=== PATIENT | male | born 1955 | race Two or more races ===

== ENCOUNTER 2017-07-15 09:56 | Observation (INO) | payer BC, OTHER ==
[2017-07-15] MEDS ORDERED: ACETAMINOPHEN 1000 MG/100 ML VIAL (NON FORMULARY) IVPB ONE (10:20)
[2017-07-15] MEDS ORDERED: ACETAMINOPHEN INJECTION 100 ML IVPB ONE (10:36)
[2017-07-15 10:47] LABS: BASO % 0.8 % (0-2.0); EOS % 3.5 % (0-4.5); HEMATOCRIT 42.3 % (35.4-49); HEMOGLOBIN 13.9 GM/dL (11.7-16.9); LYMPH % 31.4 % (8-40); MCH 27.2 pg (25.7-33.7); MCHC 32.8 g/dl (32.0-35.9); MEAN PLT VOLUME 7.4 fl (7.5-11.1); MONO % 11.4 % (3.8-10.2); NEUT % 52.9 % (42.8-82.8); PLATELET COUNT 238 K/MM3 (134-434); RDW 12.8 % (11.9-15.9); WHITE BLOOD COUNT 7.2 K/mm3 (4.0-10.0)
--- NOTE | 2017-07-15 10:58 | PDOC ---
History of Present Illness - General Chief Complaint: Syncope/Near Syncope Stated Complaint: INJURY Time Seen by Provider: 07/15/17 10:08 History Source: Patient Exam Limitations: No Limitations - History of Present Illness Initial Comments: 07/15/17 11:00 62-year-old male presents to the ED status post syncopal episode. Patient states was at work when she started his stay uneventfully when he was to get couple coffee and started to choke on the fluids. Patient states was unable to catch his breath and started feel dizzy. 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 As per the supervising he did not witness the fall but did find patient on the floor without tremors, skin discoloration, eye rolling, or confusion. Patient states has had this episode happened to him before secondary to coughing episode causing him to faint. Patient states is followed by Dr. 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 Patient has no complaints except for a bump to the back of his head and throbbing sensation surrounding the bump. Patient also mentions upper neck pain which she describes an aching stiff sensation. Patient denies chest pain, shortness of breath, visual changes, nausea, abdominal pain or weakness. Patient currently on no anticoagulation therapy except for baby aspirin daily. Presenting Symptoms: Syncope Timing/Duration: reports: resolved prior to arrival Associated Symptoms: Yes: Syncope Past History - Travel Traveled outside of the country in the last 30 days: No - Past Medical History Allergies/Adverse Reactions: Allergies Allergy/AdvReac Type Severity Reaction Status Date / Time No Known Allergies Allergy Verified 07/15/17 10:00 Home Medications: Ambulatory Orders Amlodipine Besylate [Norvasc -] 10 mg PO DAILY 05/08/13 Losartan Potassium 25 mg PO DAILY 07/15/17 Omeprazole/Sodium Bicarbonate [Omeppi 40 mg-1,100 mg Capsule] 1 each PO DAILY Anemia: No Asthma: No Cancer: No Cardiac Disorders: No CVA: No COPD: No CHF: No Dementia: No Diabetes: No GI Disorders: No Disorders: No HTN: Yes Hypercholesterolemia: Yes Liver Disease: No Seizures: No Thyroid Disease: No - Surgical History Abdominal Surgery: Yes (HERNIA REPAIR) - Suicide/Smoking/Psychosocial Hx Smoking Status: No Smoking History: Never smoked Number of Cigarettes Smoked Daily: 0 Patient Lives Alone: No Lives with/in: spouse/SO Cardiac Specific PMH - Complaint Specific PMHX Pacemaker: No Review of Systems - Review of Systems Able to Perform ROS?: Yes Constitutional: No: Symptoms Reported HEENTM: No: Symptoms Reported Respiratory: No: Symptoms reported Cardiac (ROS): Yes: Syncope Musculoskeletal: Yes: Neck Pain (upper neck) Integumentary: Yes: Lumps Neurological: Yes: Headache Hematologic/Lymphatic: No: Symptoms Reported *Physical Exam - Vital Signs Last Vital Signs Temp Pulse Resp BP Pulse Ox 97.9 F 81 16 128/77 97 07/15/17 10:00 07/15/17 16:00 07/15/17 16:00 07/15/17 16:00 07/15/17 16:00 - Physical Exam General Appearance: Yes: Nourished, Appropriately Dressed. No: Apparent Distress HEENT: positive: EOMI, ALBERTINA, TMs Normal, Pharynx Normal. negative: Pale Conjunctivae Neck: positive: Supple, Tender lateral (t C1 level bi), Tender midline (c1) Respiratory/Chest: positive: Lungs Clear, Normal Breath Sounds. negative: Respiratory Distress, Accessory Muscle Use Cardiovascular: positive: Regular Rhythm, Regular Rate. negative: Murmur Gastrointestinal/Abdominal: positive: Soft. negative: Tenderness Integumentary: positive: Normal Color, Warm, Moist, Swelling (noted 4 cm circular tender hematoma over left occipital region. Surrounding skin intact) Heart Score/ECG Review - History History: Slightly suspicious - Electrocardiogram EKG: Normal - Age Age: 45-65 - Risk Factors Risk Factors Heart Score: Yes Hx Hypercholesterolemia, Yes Hx Hypertension Based on the list above the patient has:: 1-2 risk factors - Troponin Troponin: </= normal limit - Score Heart Score - Total: 2 - ECG Intrepretation Rhythm: Regular Rhythm (Regular rate at 66. Intervals are regular. No ST elevation or depression.) ED Treatment Course - LABORATORY CBC & Chemistry Diagram: 07/15/17 10:30 07/15/17 10:30 - ADDITIONAL ORDERS Additional order review: Laboratory Results 07/15/17 07/15/17 10:30 10:30 PT with INR 11.70 INR 1.04 Sodium 138 Potassium 4.0 Chloride 102 Carbon Dioxide 25 Anion Gap 11 BUN 12 D Creatinine 1.0 Creat Clearance w eGFR > 60 Random Glucose 138 H D Calcium 8.6 Magnesium 2.4 Total Bilirubin 0.4 AST 27 D ALT 44 D Alkaline Phosphatase 82 Creatine Kinase 105 Troponin I < 0.02 Total Protein 7.4 Albumin 4.0 07/15/17 10:30 RBC 5.10 MCV 83.0 MCHC 32.8 RDW 12.8 MPV 7.4 L D Neutrophils % 52.9 D Lymphocytes % 31.4 D Monocytes % 11.4 H Eosinophils % 3.5 Basophils % 0.8 - RADIOLOGY Radiology Studies Ordered: Category Date Time Status CERVICAL SPINE CT W/O CONTR [CT] Stat CT Scan 07/15/17 10:[address] WITHOUT CONTRAST [CT] Stat CT Scan 07/15/17 10:19 Completed CHEST X-RAY PORTABLE* [RAD] Stat Radiology 07/15/17 10:19 Completed CAROTID COLOR FLOW DOPP US [US] Stat Ultrasound 07/15/17 13:14 Completed - Medications Given in the ED: ED Medications Discontinued Medications Generic Name Dose Route Start Last Admin Trade Name Freq PRN Reason Stop Dose Admin Acetaminophen 1,000 mg 07/15/17 10:20 07/15/17 10:44 Ofirmev Injection - IVPB 07/15/17 10:21 1,000 mg ONCE ONE Administration Medical Decision Making - Medical Decision Making 07/15/17 11:01 Patient status post syncopal episode during a choking episode at work. Patient had an unwitnessed syncopal episode and was found by his masonry supervisor alert oriented and with no complaints of nausea or visual changes. Patient arrives with 4 cm hematoma to the left occipital along with C1 tenderness. Otherwise patient had no neural focal deficits. Differential diagnosis includes ACS, intracranial bleed, vasovagal episode, electrolyte imbalance, Cardiac workup, IV Tylenol along with CT of the head and neck were ordered 07/15/17 11:37 Laboratory Tests 07/15/17 07/15/17 10:30 10:30 WBC 7.2 Hgb 13.9 Hct 42.3 Plt Count 238 D Neutrophils % 52.9 D Random Glucose 138 H D Calcium 8.6 Magnesium 2.4 Total Bilirubin 0.4 AST 27 D ALT 44 D Creatine Kinase 105 Troponin I < 0.02 Chest x-ray shows unchanged right Granuloma 07/15/17 12:59 CT of the head and neck show no acute findings patient states feeling better after receiving IV Tylenol. Call placed to Dr. Umm Remy patient's primary care physician to update him on patient's ER visit and disposition 07/15/17 13:[address] Torres and agrees patient should be admitted to telemetry observation. Patient ordered for a carotid duplex along with an echo since his last echocardiogram was approximate 4 years ago. Patient be admitted to telemetry obs. Patient remains on ekg monitor *DC/Admit/Observation/Transfer Diagnosis at time of Disposition: Syncope - Discharge Dispostion Disposition: HOME Admit: Yes - Referrals - Patient Instructions - Post Discharge Activity
[2017-07-15 11:30] LABS: ANION GAP 11 (8-16); BILIRUBIN,TOTAL 0.4 mg/dL (0.2-1.0); BLOOD UREA NITROGEN 12 mg/dL (7-18); CALCIUM 8.6 mg/dL (8.5-10.1); CHLORIDE 102 mmol/L (98-107); CO2 25 mmol/L (21-32); GLUCOSE,RANDOM 138 mg/dL (74-106); SGPT/ALT 44 U/L (12-78); SODIUM 138 mmol/L (136-145); TOT PROT 7.4 g/dl (6.4-8.2)
[2017-07-15 11:35] LABS: ALK PHOS 82 U/L (45-117); MAGNESIUM 2.4 mg/dL (1.8-2.4); SGOT/AST 27 U/L (15-37)
[2017-07-15 11:44] LABS: INR 1.04 (0.82-1.09); PROTHROMBIN TIME (PATIENT) 11.7 SEC (9.98-11.88)
--- NOTE | 2017-07-15 16:05 | EKG ---
Test Reason : Blood Pressure : / mmHG Vent. Rate : 066 BPM Atrial Rate : 066 BPM P-R Int : 182 ms QRS Dur : 104 ms QT Int : 392 ms P-R-T Axes : 047 034 009 degrees QTc Int : 410 ms NORMAL SINUS RHYTHM NORMAL ECG WHEN COMPARED WITH ECG OF 28-APR-2013 16:47, NO SIGNIFICANT CHANGE WAS FOUND Confirmed by MASTER SANABRIA MD ([id number]) on 07/15/2017 4:05:09 PM Referred By: Confirmed By:MASTER SANABRIA MD
[2017-07-15] MEDS ORDERED: ACETAMINOPHEN 325 MG TABLET (FP) PO PRN (17:40)
--- NOTE | 2017-07-15 17:43 | HP ---
Admitting History and Physical - Primary Care Physician PCP: Audie Remy - Admission Chief Complaint: syncopal episode History of Present Illness: 62-year-old male presents to the ED status post syncopal episode. Patient states was at work when she started his stay uneventfully when he was to get couple coffee and started to choke on the fluids. Patient states was unable to catch his breath and started feel dizzy. 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 As per the supervising he did not witness the fall but did find patient on the floor without tremors, skin discoloration, eye rolling, or confusion. Patient states has had this episode happened to him before secondary to coughing episode causing him to faint. Patient states is followed by Dr. 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 Patient has no complaints except for a bump to the back of his head and throbbing sensation surrounding the bump. Patient also mentions upper neck pain which she describes an aching stiff sensation. Patient denies chest pain, shortness of breath, visual changes, nausea, abdominal pain or weakness. Patient currently on no anticoagulation therapy except for baby aspirin daily. pt seen by me in er chart reviewed discussed with pt/ er physician/ pts daughter pt feels better midl heache ct head - noted ekg - ok will keep overnight in tele for observation, History Source: Patient, Family Member Limitations to Obtaining History: No Limitations - Past Medical History Cardiovascular: Yes: HTN, Hyperlipdemia - Smoking History Smoking history: Never smoked Aproximately how many cigarettes per day: 0 - Alcohol/Substance Use History of Substance Use: reports: None - Social History Usual Living Arrangement: Yes: With Spouse History of Recent Travel: No Home Medications - Allergies Allergies/Adverse Reactions: Allergies Allergy/AdvReac Type Severity Reaction Status Date / Time No Known Allergies Allergy Verified 07/15/17 10:00 - Home Medications Home Medications: Ambulatory Orders Amlodipine Besylate [Norvasc -] 10 mg PO DAILY 05/08/13 Omeprazole/Sodium Bicarbonate [Omeppi 40 mg-1,100 mg Capsule] 1 each PO DAILY Acetaminophen [Tylenol .Regular Strength -] 650 mg PO Q4H PRN tablet 07/16/17 Atorvastatin Ca [Lipitor] 10 mg PO HS #30 tablet 07/16/17 Losartan Potassium [Cozaar -] 25 mg PO DAILY tablet 07/16/17 Review of Systems Unable to obtain ROS, reason: see [facility] Physical Examination Vital Signs: Vital Signs Temperature 97.9 F 07/15/17 10:00 Pulse Rate 81 07/15/17 16:00 Respiratory Rate 16 07/15/17 16:00 Blood Pressure 128/77 07/15/17 16:00 O2 Sat by Pulse Oximetry (%) 97 07/15/17 16:00 Constitutional: Yes: No Distress, Calm Eyes: Yes: Conjunctiva Clear, PERRL HENT: Yes: WNL Neck: Yes: WNL, Supple Cardiovascular: Yes: Regular Rate and Rhythm Respiratory: Yes: CTA Bilaterally Gastrointestinal: Yes: Normal Bowel Sounds, Soft Edema: No Neurological: Yes: WNL, Alert, Cran Nerves II-XII Intact Psychiatric: Yes: Alert Labs: CBC, BMP 07/15/17 10:30 07/15/17 10:30 Imaging - Results Chest X-ray: Report Reviewed X-ray: Report Reviewed Cat Scan: Report Reviewed EKG: Report Reviewed Problem List - Problems (1) Syncope Code(s): R55 - SYNCOPE AND COLLAPSE (2) Hypertension Code(s): I10 - ESSENTIAL (PRIMARY) HYPERTENSION Assessment/Plan Monitor on tele cardiology eval. fall precautions check echo/ lipid / tsh / hba1c repeat ct head in am will follow Discussed with pt/ daughter
[2017-07-16 02:03] VITALS: BMI 28.6
[2017-07-16 07:23] LABS: ALBUMIN 3.8 g/dl (3.4-5.0); ANION GAP 6 (8-16); BLOOD UREA NITROGEN 14 mg/dL (7-18); CALCIUM 8.2 mg/dL (8.5-10.1); CHLORIDE 106 mmol/L (98-107); CO2 28 mmol/L (21-32); GLUCOSE,RANDOM 92 mg/dL (74-106); SODIUM 140 mmol/L (136-145)
[2017-07-16 07:33] LABS: ALK PHOS 79 U/L (45-117); BILIRUBIN,TOTAL 0.6 mg/dL (0.2-1.0); CREATININE 1.1 mg/dL (0.7-1.3); SGOT/AST 16 U/L (15-37); SGPT/ALT 36 U/L (12-78)
[2017-07-16 08:10] LABS: BASO % 0.6 % (0-2.0); EOS % 2.4 % (0-4.5); HEMATOCRIT 43.6 % (35.4-49); HEMOGLOBIN 14.2 GM/dL (11.7-16.9); LYMPH % 36.8 % (8-40); MCH 26.8 pg (25.7-33.7); MCHC 32.6 g/dl (32.0-35.9); MEAN CELL VOLUME 82.2 fl (80-96); MEAN PLT VOLUME 7.9 fl (7.5-11.1); MONO % 13.7 % (3.8-10.2); NEUT % 46.5 % (42.8-82.8); PLATELET COUNT 244 K/MM3 (134-434); RBC 5.31 M/mm3 (4.00-5.60); RDW 12.2 % (11.9-15.9); WHITE BLOOD COUNT 7.1 K/mm3 (4.0-10.0)
[2017-07-16] MEDS ORDERED: OMEPRAZOLE PO SCH (10:00)
[2017-07-16] MEDS ORDERED: [UNRECOGNIZED DRUG - OTHER] PO SCH (10:00)
[2017-07-16] MEDS ORDERED: LOSARTAN POTASSIUM 25 MG TABLET PO SCH (10:00)
[2017-07-16] MEDS ORDERED: amLODIPine BESYLATE 10 MG TABLET (FP) PO SCH (10:00)
[2017-07-16] MEDS ORDERED: SODIUM BICARBONATE PO SCH (10:00)
--- NOTE | 2017-07-16 11:06 | CON.CARD ---
Consult Consult Specialty:: Cardiology - History of Present Illness Chief Complaint: Transient loss of consciousness after choking on a piece of bread. History of Present Illness: 62 year old [place] gentleman was eating a dry piece of bread and was walking suddenly he started to choke. Had difficulty in breathing and became lightheaded and then suddenly vomited and lost consciousness, hitting his head on the ground. Patient has no recollection of falling to the ground but feels that he woke up within a few seconds. Was complaining of pain over occipital area of the skull accompanied by swelling and painful fullness involving both ears. There is no history of loss of sphincter control or tongue biting. No witnessed seizures were reported. Paramedics were called and was transported to the hospital. Known case of Hypertension, Hypercholesterolemia and gastroesophageal reflux disease. No history of chest pain or discomfort, no history of dyspnea either at rest or at exertion, no PND or orthopnea. No history of palpitations. Denies having diabetes mellitus, heart murmur or rheumatic fever. - Past Medical History Cardio/Vascular: Yes: HTN, Hyperlipdemia Gastrointestinal: Yes: GERD - Past Surgical History Past Surgical History: Yes: Hernia Repair (Bilateral herniorrhaphy ) - Alcohol/Substance Use Hx Alcohol Use: Yes (Rare) History of Substance Use: reports: None - Smoking History Smoking history: Never smoked Aproximately how many cigarettes per day: 0 - Social History Usual Living Arrangement: Other (Patient has four daughters.) Occupation: Employed Place of : Other ([employer] [employer]) History of Recent Travel: No Home Medications - Allergies Allergies/Adverse Reactions: Allergies Allergy/AdvReac Type Severity Reaction Status Date / Time No Known Allergies Allergy Verified 07/15/17 10:00 - Home Medications Home Medications: Ambulatory Orders Amlodipine Besylate [Norvasc -] 10 mg PO DAILY 05/08/13 Omeprazole/Sodium Bicarbonate [Omeppi 40 mg-1,100 mg Capsule] 1 each PO DAILY Home Medications (free text): HCTZ 25 mg PO daily. Atorvastatin 10 mg PO daily. Family Disease History - Family Disease History Family Disease History: Heart Disease: Father (Hypertension, CVA and at 67 of [place]), Mother ( at 69 of [place] and Hypertension.), Other: Father, Mother, Brother (One brother), Sister (Three sisters, 2 of them have Hypertension. ) Review of Systems Findings/Remarks: Constitutional: No history of chills, fever or night sweats. No history of unintentional weight loss. HEENT: History of occipital headaches following his fall. No history diplopia, blurred vision. No history of epistaxis or hoarseness. No tinnitus or deafness. History of bilateral fullness of both ears following loss of consciousness. Cardiovascular: See history of present illness. Respiratory: No history of cough, expectoration or hemoptysis. No history of tuberculosis. GI: See history of present illness. No history of melena, or hematemesis. No history of abdominal pain or discomfort, no change in bowel habits reported. 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 Endocrine: No history of polyuria or polydipsia. No history of intolerance to cold or warm weather. Musculoskeletal: No arthralgias or history of myalgia. : No history of frequency or hematuria. HEME: No history of bleeding, anemia or ecchymosis. - Risk Factors Known Risk Factors: Yes: Hypercholesterolemia, Hypertension Vital Signs: 62 year old male was alert and coherent in no acute distress, no pallor, cyanosis, clubbing or jaundice. Temperature 98.8 F 07/16/17 07:24 Pulse Rate 62 07/16/17 07:24 Respiratory Rate 18 07/16/17 07:26 Blood Pressure 129/74 07/16/17 07:24 O2 Sat by Pulse Oximetry (%) 97 07/16/17 07:26 Physical Examination Head: Swelling over the occipital area with slight tenderness. Neck: Supple, no JVD, negative HJR, carotids were equal and upstrokes were normal, no thyromegaly appreciated. Heart: PMI was in the 5th intercostal space, no heaves or thrills, S1 and S2 were normal. No murmurs or gallops were appreciated. Lungs: Clear on auscultation bilaterally. Abdomen: Soft, nontender, no hepatosplenomegaly appreciated, and no palpable masses were felt. Extremities: No calf tenderness or dependent edema. Pulses are normal. - Other Data Labs, Other Data: CBC, BMP 07/16/17 06:30 07/16/17 06:30 INR, PTT INR 1.04 (0.82-1.09) 07/15/17 10:30 Troponin, BNP 07/15/17 10:30 Troponin I < 0.02 Troponin, BNP 07/15/17 10:30 Troponin I < 0.02 Imaging - Results Chest X-ray: Report Reviewed (Unchanged right granuloma. Otherwise normal chest. ) Cat Scan: Report Reviewed (Mild to moderate volume loss with probable mild chronic microvascular ischemic disease changes without evidence of acute intracranial pathology. Mild to moderate soft tissue swelling over left side of the head, superiorly.) Ultrasound: Report Reviewed (Intimal thickening in the distal common carotid artery up to the bifurication with minimal plaque buildup at the burification and bulb bilaterally without evidence of hemodynamically significant stenosis.) EKG: Report Reviewed (Sinus rhthym with porbable intra atrial conduction abnormality. Non specific ST and T wave abnormalities.) Assessment/Plan IMPRESSION: 1. Transient syncope precipitated by compromised respiratory tract (choking related to food). 2. Hematoma of the scalp. 3. Bilateral fullness of the ears (post injury) etiology to be determined. 4. Hypertension. 5. Hypercholesterolemia. 6. Gastroesophageal reflux disease. 7. Strong family history of CAD. RECOMMENDATIONS: 1. Echocardiogram. 2. Patient should have a holter monitor which could be done as outpatient. 3. Risk modifications in view of family history of hypertension/CAD. 4. Consider screening stress test which could be done on a outpatient basis. 5. Check blood pressure supine and standing. 6. If there is BP fluctuations on standing consider discontinuing HCTZ. Thank you for your referral. Sincerely, Clive Julian MD F.A.C.C
--- NOTE | 2017-07-16 11:26 | PN ---
Progress Note, Physician History of Present Illness: comfortable no complains no overnight events - Current Medication List Current Medications: Active Medications Acetaminophen (Tylenol -) 650 mg PO Q4H PRN PRN Reason: BACK PAIN Amlodipine Besylate (Norvasc -) 10 mg PO DAILY [facility] Last Admin: 07/16/17 09:42 Dose: 10 mg Losartan Potassium (Cozaar -) 25 mg PO DAILY [facility] Last Admin: 07/16/17 09:42 Dose: 25 mg Non-Formulary Medication (Omeprazole/Sodium Bicarbonate [Omeppi 40 Mg-1,100 Mg Capsule]) 1 each PO DAILY [facility] - Objective Vital Signs: Vital Signs Temperature 98.8 F 07/16/17 07:24 Pulse Rate 62 07/16/17 07:24 Respiratory Rate 18 07/16/17 07:26 Blood Pressure 129/74 07/16/17 07:24 O2 Sat by Pulse Oximetry (%) 97 07/16/17 07:26 Constitutional: Yes: No Distress, Calm Eyes: Yes: Conjunctiva Clear, PERRL Neck: Yes: Supple Cardiovascular: Yes: Regular Rate and Rhythm Respiratory: Yes: CTA Bilaterally Gastrointestinal: Yes: Soft Edema: No Peripheral Pulses WNL: Yes Neurological: Yes: WNL Labs: CBC, BMP 07/16/17 06:30 07/16/17 06:30 INR, PTT INR 1.04 (0.82-1.09) 07/15/17 10:30 - ....Imaging Other: Other (echo- reviewed.) Assessment/Plan Syncope- Likely vasovagal Monitor on tele cardiology eval noted- discussed with Dr. Sheikh velasco precautions repeat ct head today if -ve - will discharge with close f/u in office will follow Discussed with pt/ daughter.
[2017-07-16 12:56] LABS: CHOLESTEROL 208 mg/dL (50-200); HDL CHOLESTEROL 39 mg/dL (40-60); LDL CHOLESTEROL (ONLY SJRH) 142 mg/dL (5-100); TRIGLYCERIDES 109 mg/dL (35-160)
--- NOTE | 2017-07-16 15:43 | DS ---
Physical Examination Vital Signs: Vital Signs Temperature 98.5 F 07/16/17 14:00 Pulse Rate 65 07/16/17 14:00 Respiratory Rate 18 07/16/17 14:35 Blood Pressure 130/79 07/16/17 14:00 O2 Sat by Pulse Oximetry (%) 97 07/16/17 14:35 Findings/Remarks: See today progress note. Labs: CBC, BMP 07/16/17 06:30 07/16/17 06:30 Discharge Summary Reason For Visit: SYNCOPE Current Active Problems Syncope (Acute) Hospital Course: Kept under observation for Syncope- likely vasovagal Stable Labs noted Counselled about diet/ lipid/ sugar. repeat ct head -ve lipitor prescribed f/u office- this week. discussed with family/ nursing staff also. Condition: Stable - Instructions Diet, Activity, Other Instructions: - Resume Previous Activities - Maintain low fat, low cholesterol, low bicarb, low sugar diet. - Follow-up with PCP Dr. Remy for Lipid profile lab test. - Good hydration Referrals: Audie Remy MD [Staff Physician] - Disposition: HOME - Home Medications Comprehensive Discharge Medication List: Ambulatory Orders Amlodipine Besylate [Norvasc -] 10 mg PO DAILY 05/08/13 Omeprazole/Sodium Bicarbonate [Omeppi 40 mg-1,100 mg Capsule] 1 each PO DAILY Acetaminophen [Tylenol .Regular Strength -] 650 mg PO Q4H PRN tablet 07/16/17 Losartan Potassium [Cozaar -] 25 mg PO DAILY tablet 07/16/17
[2017-07-16 19:57] VITALS: BP 126/78; PULSE 64; TEMP 98.8
== END 2017-07-16 17:34 | disposition home or self-care (01) ==
LOC: JER 09:56 → SUPCPDRO 09:56 → JERBED 13:16 → J4W 21:08
PROVIDERS: ADMIT Internal Medicine; ATTEND Internal Medicine
CPT/HCPCS: 36415; 70450-TC; 71045-TC-FY; 72125-TC; 80053; 80061; 82550; 83036; 83721; 83735; 84443; 84484; 85025; 85610; 93005; 93010; 93306-TC; 93880-TC; 99284-25; G0378

== ENCOUNTER 2022-06-04 22:29 | Emergency (ER) | payer OTHER ==
[2022-06-04 22:56] VITALS: BP 138/84; PULSE 64; RESP 18; TEMP 97.8; BMI 29.2
[2022-06-04] MEDS ORDERED: SODIUM CHLORIDE 0.9% 500 ML INFUS.BAG IV ONE (23:14)
[2022-06-04] MEDS ORDERED: ACETAMINOPHEN 1000 MG/100 ML BAG IVPB ONE (23:15)
[2022-06-04] MEDS ORDERED: ACETAMINOPHEN INJECTION 100 ML IVPB ONE (23:51)
[2022-06-05 00:22] LABS: BASO % 0.7 % (0-2.0); EOS % 2.7 % (0-4.5); HEMATOCRIT 35.4 % (35.4-49); HEMOGLOBIN 11.7 GM/dL (11.7-16.9); LYMPH % 30.7 % (8-40); MCH 27.9 pg (25.7-33.7); MEAN CELL VOLUME 84.6 fl (80-96); MONO % 12.7 % (3.8-10.2); NEUT % 53.2 % (42.8-82.8); PLATELET COUNT 276 10^3/uL (134-434); RBC 4.18 M/mm3 (4.00-5.60); RDW 13.1 % (11.9-15.9); WHITE BLOOD COUNT 6.7 K/mm3 (4.0-10.0)
[2022-06-05 00:44] LABS: CALCIUM 8.9 mg/dL (8.5-10.1)
[2022-06-05 00:45] LABS: BLOOD UREA NITROGEN 22.4 mg/dL (7-18)
[2022-06-05 00:48] LABS: CREATININE 1.6 mg/dL (0.55-1.3)
[2022-06-05 00:49] LABS: BILIRUBIN,TOTAL 0.4 mg/dL (0.2-1); TOT PROT 10.6 g/dl (6.4-8.2)
[2022-06-05 01:33] LABS: EPI CELLS 5 /uL (0-25.1); HYALINE CASTS 0 /uL (0-3.1); URINE APPEARANCE CLEAR; URINE BACTERIA 17 /uL (0-1359); URINE BILIRUBIN NEGATIVE (NEGATIVE); URINE COLOR YELLOW; URINE GLUCOSE (UA) NEGATIVE (NEGATIVE); URINE KETONE NEGATIVE (NEGATIVE); URINE LEUK ESTERASE NEGATIVE (NEGATIVE); URINE NITRITE NEGATIVE (NEGATIVE); URINE PROTEIN 1+ (NEGATIVE); URINE RBC 16 /uL (0-23.9); URINE UROBILINOGEN 0.2 mg/dL (0.2-1.0); URINE WBC 6 /uL (0-25.8)
[2022-06-05] MEDS ORDERED: LACTULOSE 20 GM/30 ML UDC (FOR ORAL USE ONLY) PO ONE (02:52)
[2022-06-05] MEDS ORDERED: LACTULOSE 20 GM/30 ML UDC (FOR ORAL USE ONLY) ONE (02:55)
[2022-06-05] MEDS ORDERED: POLYETHYLENE GLYCOL (HEALTHYLAX) 3350 17 GM PACKET PO SCH (03:00)
== END 2022-06-05 03:07 | disposition home or self-care (01) ==
LOC: JER 22:29
PROC: 3E0333Z Introduction of Anti-inflammatory into Peripheral Vein, Percutaneous Approach (ICD-10-PCS; principal; 2022-06-04)
DX: K65.4 Sclerosing mesenteritis (principal); K59.01 Slow transit constipation
CPT/HCPCS: 36415; 74176-TC; 80053; 81003; 85025; 87086; 93005; 93010; 99285-25